=== PATIENT | female | born 1970 | race Caucasian/White ===

== ENCOUNTER 2019-10-21 23:26 | Emergency (ER) | payer OTHER ==
[~2019-10-21] VITALS: Ht 152.4 cm; Wt 46.3 kg
[2019-10-21 23:50] VITALS: BP 170/90
--- NOTE | 2019-10-21 23:50 | NUR ---
TO BED # 02 AMBULATORY
--- NOTE | 2019-10-22 00:05 | NUR ---
PT AMBULATED TO BED 1.
[2019-10-22] MEDS ORDERED: KETOROLAC 30 MG/ML VIAL IM ONE (00:40)
[2019-10-22] MEDS ORDERED: PROMETH/CODEINE 6.25-10MG/5ML 5 ML UDC PO ONE (00:40)
[2019-10-22 01:05] VITALS: BP 148/76
--- NOTE | 2019-10-22 01:05 | NUR ---
Patient discharged with v/s stable. She states pain reduced to tollerable 5/10 Written and verbal after care instructions given and explained. Patient alert, oriented and verbalized understanding of instructions. Ambulatory with steady gait. All questions addressed prior to discharge. ID band removed. Patient advised to follow up with PMD. Rx of Motrin and Promenthazine given. Patient educated on indication of medication including possible reaction and side effects. Opportunity to ask questions provided and answered.
== END 2019-10-22 01:05 | disposition home or self-care (01) ==
LOC: MED 23:26
DX: J02.8 Acute pharyngitis due to other specified organisms (principal); B96.89 Other specified bacterial agents as the cause of diseases classified elsewhere; B97.89 Other viral agents as the cause of diseases classified elsewhere; F17.210 Nicotine dependence, cigarettes, uncomplicated; Z71.6 Tobacco abuse counseling
CPT/HCPCS: 87804; 96372; 99283; J1885

== ENCOUNTER 2020-04-05 19:29 | Emergency (ER) | payer OTHER ==
[~2020-04-05] VITALS: Ht 152.4 cm; Wt 52.2 kg
[2020-04-05 19:34] VITALS: BP 170/109
[2020-04-05] MEDS ORDERED: DICYCLOMINE HCL LIQUID 20 MG, ALUMINUM HYD/MAG/SIMETHICONE 30 ML, LIDOCAINE VISCOUS 2% ... PO ONE ×3 (19:40)
--- NOTE | 2020-04-05 19:50 | NUR ---
49 Y/O F PRESENTS TO ED C/O MIDDLE LOWER ABD PAIN 9/10 X 3 DAYS AGO AND NOW IS EXPERIENCING PAIN IN THE LEFT EXTEMITY. PT DENIES N/V/D. PT STATES PAIN STARTED SUDDENLY. DENIES ANY BURNING DURING URINATION. BED LOCKED AND IN LOWEST POSITION, SIDE RAIL UPX1. WILL CONTINUE TO MONITOR. MHX: DENIES ALLERGIES: PCN
[2020-04-05] MEDS ORDERED: DICYCLOMINE HCL LIQUID 10 MG/5 ML UDC ONE (19:51)
[2020-04-05] MEDS ORDERED: LIDOCAINE VISCOUS 2% 20 ML UDC ONE (19:51)
[2020-04-05] MEDS ORDERED: ALUMINUM HYD/MAG/SIMETHICONE 30 ML UDC ONE (19:51)
[2020-04-05] MEDS ORDERED: NACL 0.9% 1,000 ML IV SCH (20:46)
[2020-04-05] MEDS ORDERED: KETOROLAC 30 MG/ML VIAL IVP ONE (20:50)
[2020-04-05] MEDS ORDERED: KETOROLAC 60 MG/2 ML VIAL IM ONE (21:00)
[2020-04-05 21:03] LABS: APPEARANCE,URINE CLEAR (CLEAR); BILIRUBIN,URINE NEGATIVE (NEGATIVE); BLOOD, URINE NEGATIVE (NEGATIVE); COLOR,URINE YELLOW (YELLOW); LEUKOCYTE ESTERASE ,URINE NEGATIVE (NEGATIVE); NITRITE, URINE NEGATIVE (NEGATIVE); UGLUCOSE NEGATIVE (NEGATIVE)
[2020-04-05 21:05] LABS: BASOPHILS # (AUTO) 0.1 K/uL (0.00-0.22); BASOPHILS % (AUTO) 0.9 % (0.0-2.0); EOSINOPHILS # (AUTO) 0.3 K/uL (0-0.4); EOSINOPHILS % (AUTO) 3.4 % (0.0-4.0); HEMATOCRIT 43.8 % (36-48); HEMOGLOBIN 14.4 g/dL (12.0-16.0); LYMPHOCYTES # (AUTO) 2.8 K/uL (2.5-16.5); LYMPHOCYTES % (AUTO) 31.8 % (20.5-51.1); MEAN CORPUSCULAR HEMOGLOBIN 30 pg (27-31); MEAN CORPUSCULAR HGB CONC 33 g/dL (33-37); MEAN CORPUSCULAR VOLUME 91.8 fL (80-94); MONOCYTES # (AUTO) 0.7 K/uL (0.8-1.0); MONOCYTES % (AUTO) 7.7 % (1.7-9.3); NEUTROPHILS # (AUTO) 4.9 K/uL (1.8-7.7); NEUTROPHILS % (AUTO) 56.2 % (42.2-75.2); PLATELET COUNT (AUTO) 305 K/uL (140-450); RED BLOOD CELL COUNT(AUTO) 4.77 MIL/uL (4.20-5.40); RED CELL DISTRIBUTION WIDTH 13.2 % (11.6-13.7); WHITE BLOOD COUNT (AUTO) 8.7 K/uL (4.8-10.8)
[2020-04-05 21:17] LABS: ALBUMIN 3.9 g/dL (3.4-5.0); CARBON DIOXIDE 32.6 mmol/L (21-32); POTASSIUM 3.6 mmol/L (3.5-5.1); TOTAL BILIRUBIN 0.4 mg/dL (0.0-1.0)
--- NOTE | 2020-04-05 22:20 | NUR ---
Patient discharged with v/s stable. Written and verbal after care instructions given and explained. Patient alert, oriented and verbalized understanding of instructions. Ambulatory with steady gait. All questions addressed prior to discharge. ID band removed. Patient advised to follow up with PMD. Rx of MOTRIN AND NORCO given. Patient educated on indication of medication including possible reaction and side effects. Opportunity to ask questions provided and answered.
[2020-04-05 22:21] VITALS: BP 168/95
== END 2020-04-05 22:20 | disposition home or self-care (01) ==
LOC: MED 19:29
DX: K42.9 Umbilical hernia without obstruction or gangrene (principal); F17.200 Nicotine dependence, unspecified, uncomplicated; Z88.0 Allergy status to penicillin; Z90.49 Acquired absence of other specified parts of digestive tract; Z98.890 Other specified postprocedural states
CPT/HCPCS: 36415; 74176; 80053; 81003; 81025; 83690; 85025; 96372; 99284; J1885

== ENCOUNTER 2021-09-21 19:21 | Emergency (ER) | payer OTHER ==
--- NOTE | 2021-09-21 20:52 | NUR ---
called for patient-- no answer at this time
--- NOTE | 2021-09-21 21:00 | NUR ---
called for patient- no answer at this time
--- NOTE | 2021-09-21 21:00 | NUR ---
PATIENT LEFT WITHOUT BEING SEEN BY DR. PASCUAL. NO FURTHER CARE PROVIDED FOR PATIENT.
== END 2021-09-21 20:52 | disposition left against medical advice (07) ==
LOC: MED 19:21
DX: I10 Essential (primary) hypertension (principal); Z53.21 Procedure and treatment not carried out due to patient leaving prior to being seen by health care provider

== ENCOUNTER 2022-09-19 23:16 | Emergency (ER) | payer OTHER ==
[~2022-09-19] VITALS: Ht 152.4 cm; Wt 52.2 kg
[2022-09-19 23:20] VITALS: BP 185/120
--- NOTE | 2022-09-19 23:26 | NUR ---
to bed ambulatory
--- NOTE | 2022-09-19 23:31 | NUR ---
pt is complaining hyspertensive. pain in the head. alert and oriented x 4. room air and ambulate.
[2022-09-19] MEDS ORDERED: KETOROLAC 30 MG/ML VIAL IVP ONE (23:35)
[2022-09-19] MEDS ORDERED: diphenhydrAMINE 50 MG/ML VIAL IVP ONE (23:35)
[2022-09-19] MEDS ORDERED: NACL 0.9% 1,000 ML IV ONE (23:35)
[2022-09-19] MEDS ORDERED: ONDANSETRON 4 MG/2 ML VIAL IVP ONE (23:35)
[2022-09-19 23:54] LABS: BASOPHILS # (AUTO) 0.1 K/uL (0.00-0.22); BASOPHILS % (AUTO) 0.6 % (0.0-2.0); EOSINOPHILS # (AUTO) 0.4 K/uL (0-0.4); EOSINOPHILS % (AUTO) 3.4 % (0.0-4.0); HEMATOCRIT 43.7 % (36-48); HEMOGLOBIN 14.5 g/dL (12.0-16.0); LYMPHOCYTES # (AUTO) 3.4 K/uL (2.5-16.5); LYMPHOCYTES % (AUTO) 29.4 % (20.5-51.1); MEAN CORPUSCULAR HEMOGLOBIN 30 pg (27-31); MEAN CORPUSCULAR HGB CONC 33 g/dL (33-37); MEAN CORPUSCULAR VOLUME 88.9 fL (80-94); MONOCYTES # (AUTO) 0.8 K/uL (0.8-1.0); NEUTROPHILS # (AUTO) 6.9 K/uL (1.8-7.7); NEUTROPHILS % (AUTO) 59.6 % (42.2-75.2); PLATELET COUNT (AUTO) 362 K/uL (140-450); RED BLOOD CELL COUNT(AUTO) 4.92 MIL/uL (4.20-5.40); RED CELL DISTRIBUTION WIDTH 12.9 % (11.6-13.7); WHITE BLOOD COUNT (AUTO) 11.7 K/uL (4.8-10.8)
[2022-09-20 00:15] LABS: ALBUMIN 4.5 g/dL (3.4-5.0); ANION GAP 12.5 (8-16); ASPARTATE AMINOTRANSFERASE 46 U/L (15-37); CARBON DIOXIDE 29.2 mmol/L (21-32); CHLORIDE 101 mmol/L (98-107); CREATININE 1.1 mg/dL (0.6-1.3); GFR ARICAN-AMERICAN 68 mL/min (>90); GLUCOSE 101 mg/dL (74-106); POTASSIUM 3.7 mmol/L (3.5-5.1); SODIUM SERUM 139 mmol/L (136-145); TOTAL BILIRUBIN 0.3 mg/dL (0.0-1.0); UREA NITROGEN, BLOOD 19 mg/dL (7-18)
[2022-09-20] MEDS ORDERED: hydrALAZINE 20 MG/ML VIAL IVP ONE (00:30)
--- NOTE | 2022-09-20 00:36 | NUR ---
Dr. Sibley examining patient.
[2022-09-20 01:19] VITALS: BP 209/124
--- NOTE | 2022-09-20 01:20 | NUR ---
Patient discharged with v/s stable. Written and verbal after care instructions given and explained. Patient verbalized understanding. Ambulatory with steady gait. All questions addressed prior to discharge. Advised to follow up with PMD. pt is very pleased with her doctor service, she appreciated. she will be going to follow up with the cardicologist for her blood pressure. pt left with her beloniging
--- NOTE | 2022-09-22 09:09 | NUR ---
LATE ENTRY -- CONFIRMED WITH NURSE NS INFUSION COMPLETED AT 0108 09/20/22
[2022-09-23] MEDS ORDERED: SUMA11AE2 NS (13:46)
[2022-09-23] MEDS ORDERED: HYDR-3293 PO (13:46)
[2022-09-23] MEDS ORDERED: METO50TE2 PO (13:46)
== END 2022-09-20 01:20 | disposition home or self-care (01) ==
LOC: MED 23:16
DX: I10 Essential (primary) hypertension (principal); R11.0 Nausea; F17.200 Nicotine dependence, unspecified, uncomplicated; Z71.6 Tobacco abuse counseling; Z88.0 Allergy status to penicillin
CPT/HCPCS: 36415; 80053; 84484; 85025; 96361; 96374; 96375; 99284; J0360; J1200; J1885; J2405; J7030

== ENCOUNTER 2022-09-23 22:44 | Emergency (ER) | payer OTHER ==
[~2022-09-23] VITALS: Ht 152.4 cm; Wt 54.4 kg
[~2022-09-23 22:44] MED LIST: HYDR-3293 PO; METO50TE2 PO; SUMA11AE2 NS
[2022-09-23 23:20] VITALS: BP 180/104
--- NOTE | 2022-09-23 23:25 | NUR ---
to lobby a/w bed via w/c
--- NOTE | 2022-09-24 02:39 | NUR ---
pt called in lobby and outside x3 with no answer. pt lwbs
== END 2022-09-24 02:39 | disposition left against medical advice (07) ==
LOC: MED 22:44
DX: F41.9 Anxiety disorder, unspecified (principal); Z53.21 Procedure and treatment not carried out due to patient leaving prior to being seen by health care provider

== ENCOUNTER 2024-01-01 02:26 | Emergency (ER) | payer MEDICAID, OTHER ==
[~2024-01-01] VITALS: Ht 149.9 cm; Wt 54.4 kg
[2024-01-01 02:42] VITALS: BP 152/88; PULSE 111; RESP 22; TEMP 99.5; O2SAT 98
[2024-01-01] MEDS ORDERED: BENZ200C4 PO (03:59)
[2024-01-01] MEDS ORDERED: METH4TAB1 PO (03:59)
[2024-01-01] MEDS: KETOROLAC 60 MG/2 ML VIAL IM ONE (04:00)
== END 2024-01-01 04:49 | disposition home or self-care (01) ==
LOC: MED 02:26
DX: J41.0 Simple chronic bronchitis (principal); I10 Essential (primary) hypertension; Z79.899 Other long term (current) drug therapy; Z88.0 Allergy status to penicillin
CPT/HCPCS: 81025; 96372; 99283; J1885

== ENCOUNTER 2024-01-03 19:37 | Emergency (ER) | payer MEDICAID ==
[~2024-01-03 19:37] MED LIST changes: +BENZ200C4 PO; +METH4TAB1 PO
== END 2024-01-03 20:46 | disposition left against medical advice (07) ==
LOC: MED 19:37
DX: R05.9 Cough, unspecified (principal); R06.02 Shortness of breath; M79.10 Myalgia, unspecified site; Z53.21 Procedure and treatment not carried out due to patient leaving prior to being seen by health care provider

== ENCOUNTER 2024-03-25 14:36 | Emergency (ER) | payer SELFPAY ==
[~2024-03-25] VITALS: Ht 149.9 cm; Wt 58.2 kg
[2024-03-25 14:42] VITALS: BP 184/98; PULSE 72; RESP 18; TEMP 98; O2SAT 98
[2024-03-25 15:11] VITALS: O2SAT 98
[2024-03-25] MEDS ORDERED: HYDR12.51 PO (15:36)
[2024-03-25] MEDS ORDERED: SUMA11AE2 NS (15:36)
[2024-03-25 15:40] VITALS: BP 174/98
== END 2024-03-25 15:40 | disposition home or self-care (01) ==
LOC: MED 14:36
DX: I10 Essential (primary) hypertension (principal); G43.909 Migraine, unspecified, not intractable, without status migrainosus; Z91.148 Patient's other noncompliance with medication regimen for other reason; Z79.899 Other long term (current) drug therapy; Z88.0 Allergy status to penicillin
CPT/HCPCS: 99283